=== PATIENT | male | born 1995 | race Caucasian/White ===

== ENCOUNTER 2019-07-01 14:58 | Inpatient (IN) | payer OTHER ==
[2019-07-01] MEDS: ACETAMINOPHEN 325 MG TAB PO (16:10)
[2019-07-01] MEDS: SOD CHLORIDE 0.9% 1,000 ML IV ×2 (16:10→22:55)
[2019-07-01] MEDS: ONDANSETRON 4 MG INJ IV ×2 (16:10→18:01)
[2019-07-01] MEDS: FAMOTIDINE 20 MG TAB PO (16:10)
[2019-07-01 16:14] LABS: ADD MAN DIFF? NO
[2019-07-01 16:15] LABS: URINE BLOOD (Dip) POC Trace-intact (NEGATIVE); URINE GLUCOSE (Dip) POC Negative (NEGATIVE); URINE KETONES (Dip) POC Negative (NEGATIVE); URINE LEUKOCYTE EST (Dip) POC Negative (NEGATIVE); URINE NITRITE (Dip) POC Negative (NEGATIVE); URINE TOTAL PROTEIN POC Negative (NEGATIVE)
[2019-07-01 16:16] LABS: WHITE BLOOD COUNT 14.3 10^3/ul (4.8-10.8)
[2019-07-01 16:16] LABS: BASOPHILS % 0.1 % (0.0-2.0); EOSINOPHILS % 0.1 % (0.0-7.0); HEMATOCRIT 47.2 % (42.0-52.0); HEMOGLOBIN 16.6 g/dl (14.0-18.0); LYMPHOCYTES # 1.1 10^3/ul (0.8-2.9); LYMPHOCYTES % 7.5 % (15.0-51.0); MEAN CORPUSCULAR HEMOGLOBIN 31.6 pg (29.0-33.0); MEAN CORPUSCULAR HGB CONC 35.2 g/dl (32.0-37.0); MEAN CORPUSCULAR VOLUME 89.9 fl (82.0-101.0); MEAN PLATELET VOLUME 8.7 fl (7.4-10.4); MONOCYTE # 0.3 10^3/ul (0.3-0.9); MONOCYTES % 1.8 % (0.0-11.0); NEUTROPHIL # 12.9 10^3/ul (1.6-7.5); NEUTROPHILS % 90.2 % (39.0-77.0); PLATELET COUNT 142 10^3/UL (140-415); RED BLOOD COUNT 5.25 10^6/ul (4.70-6.10); RED CELL DISTRIBUTION WIDTH 11.9 % (11.5-14.5)
[2019-07-01 16:39] LABS: ALANINE AMINOTRANSFERASE 97 IU/L (13-69); ALBUMIN/GLOBULIN RATIO 1.31; ALKALINE PHOSPHATASE 67 IU/L (42-121); ANION GAP 10 (5-13); ASPARTATE AMINO TRANSFERASE 52 IU/L (15-46); BILIRUBIN,INDIRECT 0.6 mg/dl (0-1.1); BILIRUBIN,TOTAL 0.6 mg/dl (0.2-1.3); BLOOD UREA NITROGEN 17 mg/dl (7-20); CALCIUM 9.8 mg/dl (8.4-10.2); CARBON DIOXIDE 29 mmol/L (21-31); CHLORIDE 101 mmol/L (97-110); CREATININE 1.02 mg/dl (0.61-1.24); Estimated GFR > 60 mL/min (>60); GLUCOSE 118 mg/dl (70-220); LIPASE 111 U/L (23-300); POTASSIUM 3.7 mmol/L (3.5-5.1); SODIUM 140 mmol/L (135-144); TOTAL PROTEIN 8.8 g/dl (6.1-8.1)
[2019-07-01] MEDS: SOD CHLORIDE 0.9% 100 ML (17:19)
[2019-07-01] MEDS: IOHEXOL 300MG/ML 150 ML BTL (17:19)
[2019-07-01] MEDS: morphine 4 MG/ML VIAL IV (18:00)
[2019-07-01] MEDS: PIPER-TAZO 3.375 GM IV (PMX) 100 ML IVPB (18:00)
[2019-07-01] MEDS ORDERED: ACETAMINOPHEN 325 MG TAB PO (18:30)
[2019-07-01] MEDS ORDERED: ONDANSETRON 4 MG INJ IV (18:30)
[2019-07-02] MEDS: ACETAMINOPHEN 325 MG TAB PO (02:11)
[2019-07-02] MEDS: PIPER-TAZO 3.375 GM IV (PMX) 100 ML IVPB ×5 (02:13→23:42)
[2019-07-02 05:27] LABS: ADD MAN DIFF? NO; HAAIG REFLEX REFLEX FILED
[2019-07-02 05:37] LABS: WHITE BLOOD COUNT 14.2 10^3/ul (4.8-10.8)
[2019-07-02 05:37] LABS: BASOPHILS % 0.1 % (0.0-2.0); HEMATOCRIT 44.2 % (42.0-52.0); HEMOGLOBIN 15.6 g/dl (14.0-18.0); LYMPHOCYTES # 1.2 10^3/ul (0.8-2.9); LYMPHOCYTES % 8.1 % (15.0-51.0); MEAN CORPUSCULAR HEMOGLOBIN 31.8 pg (29.0-33.0); MEAN CORPUSCULAR HGB CONC 35.3 g/dl (32.0-37.0); MEAN CORPUSCULAR VOLUME 90.2 fl (82.0-101.0); MEAN PLATELET VOLUME 9.5 fl (7.4-10.4); MONOCYTE # 0.8 10^3/ul (0.3-0.9); MONOCYTES % 5.3 % (0.0-11.0); NEUTROPHIL # 12.2 10^3/ul (1.6-7.5); PLATELET COUNT 130 10^3/UL (140-415); RED CELL DISTRIBUTION WIDTH 12.2 % (11.5-14.5)
[2019-07-02 06:05] LABS: ALANINE AMINOTRANSFERASE 78 IU/L (13-69); ALBUMIN 4.1 g/dl (3.3-4.9); ALKALINE PHOSPHATASE 60 IU/L (42-121); ANION GAP 6 (5-13); ASPARTATE AMINO TRANSFERASE 38 IU/L (15-46); BILIRUBIN,INDIRECT 1.3 mg/dl (0-1.1); BILIRUBIN,TOTAL 1.3 mg/dl (0.2-1.3); BLOOD UREA NITROGEN 12 mg/dl (7-20); CALCIUM 8.6 mg/dl (8.4-10.2); CARBON DIOXIDE 31 mmol/L (21-31); CHLORIDE 100 mmol/L (97-110); CREATININE 1.02 mg/dl (0.61-1.24); Estimated GFR > 60 mL/min (>60); GLUCOSE 108 mg/dl (70-220); INR 1.15; POTASSIUM 3.4 mmol/L (3.5-5.1); PROTIME 14.8 Sec (11.9-14.9); PT RATIO 1.2; SODIUM 137 mmol/L (135-144); TOTAL PROTEIN 7.5 g/dl (6.1-8.1)
[2019-07-02 06:19] LABS: HEPATITIS B SURFACE ANTIGEN NEGATIVE (NEGATIVE)
[2019-07-02 06:26] LABS: MAGNESIUM 1.4 mg/dl (1.7-2.5)
[2019-07-02 06:26] LABS: PHOSPHORUS 3.8 mg/dl (2.5-4.9)
[2019-07-02] MEDS: SOD CHLORIDE 0.9% 1,000 ML IV ×3 (06:30→18:05)
[2019-07-02 06:36] LABS: HEPATITIS C VIRAL ANTIBODY NEGATIVE (NEGATIVE)
[2019-07-02 07:11] LABS: HEPATITIS B CORE ANTIBODY NEGATIVE (NEGATIVE)
[2019-07-02] MEDS ORDERED: ONDANSETRON 4 MG INJ (07:21)
[2019-07-02] MEDS ORDERED: PROPOFOL 20 ML (07:21)
[2019-07-02] MEDS ORDERED: MIDAZOLAM 1 MG/ML 2 ML INJ (07:21)
[2019-07-02] MEDS ORDERED: DEXAMETHASONE 4 MG/ML 5 ML INJ (07:21)
[2019-07-02] MEDS ORDERED: FENTAnyl 50 MCG/ML VIAL ×2 (07:21→08:15)
[2019-07-02] MEDS ORDERED: GLYCOPYRROLATE 0.4 MG INJ (07:21)
[2019-07-02] MEDS ORDERED: CEFAZOLIN 1 GM INJ (07:21)
[2019-07-02] MEDS ORDERED: NEOSTIGMINE 3 MG/3 ML SYRINGE (07:21)
[2019-07-02] MEDS ORDERED: ROCURONIUM 50 MG INJ (07:21)
[2019-07-02] MEDS: BUPIVACAINE 0.25%/EPI (SDV) 10 ML INJ (08:08)
[2019-07-02] MEDS ORDERED: HYDROmorphONE 1 MG/5 ML IV SYRINGE IV ×2 (08:46→09:00)
[2019-07-02] MEDS: HYDROmorphONE 1 MG/5 ML IV SYRINGE IV ×3 (08:58→09:18)
[2019-07-02] MEDS ORDERED: TRIMETHOBENZAMIDE 100 MG/ML VIAL IM (09:00)
[2019-07-02] MEDS ORDERED: ALBUTEROL 0.083% (NEB) 2.5 MG/3 ML AMP HHN (09:00)
[2019-07-02] MEDS ORDERED: FENTAnyl 50 MCG/ML VIAL IV ×3 (09:00)
[2019-07-02] MEDS ORDERED: ONDANSETRON 4 MG INJ IV ×2 (09:00)
[2019-07-02] MEDS ORDERED: hydrALAzine 20 MG INJ IV (09:00)
[2019-07-02] MEDS ORDERED: morphine 2 MG INJ IV (09:00)
[2019-07-02] MEDS ORDERED: LABETALOL HCL 20MG INJ IV (09:00)
[2019-07-02] MEDS ORDERED: DIPHENHYDRAMINE 50 MG INJ IV (09:00)
[2019-07-02] MEDS ORDERED: OXYCODONE/ACETAMINOPHEN (5/325) TAB PO (09:00)
[2019-07-02] MEDS ORDERED: MIDAZOLAM 1 MG/ML 2 ML INJ IV (09:00)
[2019-07-02] MEDS ORDERED: EPHEDrine 25 MG/5 ML SYG IV (09:00)
[2019-07-02] MEDS ORDERED: MEPERIDINE 25 MG INJ IV (09:00)
[2019-07-02] MEDS ORDERED: IPRATROPIUM (NEB) 0.5 MG/2.5 ML AMP HHN (09:00)
[2019-07-02] MEDS: OXYCODONE/ACETAMINOPHEN (5/325) TAB PO ×3 (09:21→22:20)
[2019-07-02] MEDS: POTASSIUM CHLORIDE 20 MEQ POWDER FOR ORAL SOLN PO (16:25)
[2019-07-02] MEDS: MAGNESIUM SULFATE 2 GM/50 ML 50 ML IVPB (16:32)
[2019-07-03] MEDS: SOD CHLORIDE 0.9% 1,000 ML IV (03:25)
[2019-07-03] MEDS: PIPER-TAZO 3.375 GM IV (PMX) 100 ML IVPB ×2 (05:45→11:59)
[2019-07-03 08:16] LABS: ADD MAN DIFF? NO
[2019-07-03 08:21] LABS: BASOPHILS % 0.1 % (0.0-2.0); HEMATOCRIT 37.9 % (42.0-52.0); HEMOGLOBIN 13.2 g/dl (14.0-18.0); LYMPHOCYTES # 1.5 10^3/ul (0.8-2.9); LYMPHOCYTES % 13.6 % (15.0-51.0); MEAN CORPUSCULAR HEMOGLOBIN 31.7 pg (29.0-33.0); MEAN CORPUSCULAR HGB CONC 34.8 g/dl (32.0-37.0); MEAN CORPUSCULAR VOLUME 91.1 fl (82.0-101.0); MONOCYTES % 8.7 % (0.0-11.0); NEUTROPHIL # 8.6 10^3/ul (1.6-7.5); PLATELET COUNT 115 10^3/UL (140-415); RED BLOOD COUNT 4.16 10^6/ul (4.70-6.10); RED CELL DISTRIBUTION WIDTH 12.1 % (11.5-14.5)
[2019-07-03 08:21] LABS: WHITE BLOOD COUNT 11.2 10^3/ul (4.8-10.8)
[2019-07-03] MEDS: OXYCODONE/ACETAMINOPHEN (5/325) TAB PO (11:59)
== END 2019-07-03 14:00 | disposition home or self-care (01) | DRG 343 ==
LOC: FTE 14:58 → 2NE 18:19
PROC: 0DTJ4ZZ Resection of Appendix, Percutaneous Endoscopic Approach (ICD-10-PCS; principal; 2019-07-02 07:30)
DX: K35.30 Acute appendicitis with localized peritonitis, without perforation or gangrene (principal); R19.7 Diarrhea, unspecified
CPT/HCPCS: 36415; 74177; 76705; 80053; 81003; 83690; 83735; 84100; 84443; 85025; 85610; 86704; 86709; 86803; 87340; 88304; 96361; 96365; 96375; 96376; 99285-25